=== PATIENT | male | born 1985 | race Caucasian/White ===

== ENCOUNTER 2016-06-20 13:30 | Emergency (ER) | payer OTHER ==
[~2016-06-20] VITALS: Ht 177.8 cm; Wt 115.0 kg
[~2016-06-20 13:30] MED LIST: Z.0.NO CURRENT MEDS
[2016-06-20 13:32] VITALS: BP 117/70; PULSE 96; RESP 14; TEMP 98.7; O2SAT 96
[2016-06-20] MEDS ORDERED: GABA300C5 PO (13:37)
[2016-06-20] MEDS ORDERED: BENA25TA3 PO (13:37)
[2016-06-20] MEDS ORDERED: CELE20TA PO (13:37)
--- NOTE | 2016-06-20 13:58 | PD ---
HPI Chief Complaint: GI Complaint Time Seen by Provider: 13:54 Travel History International Travel<30 days: No Contact w/Intl Traveler<30days: No Traveled to known affect area: No History of Present Illness HPI 31-year-old man presents emergent department after 4 episodes of loose stools this morning. His a history of GI problems. Takes Bentyl daily. Sp[facility] worried because it started taking 60 g of protein at a time following a work out in her worried that because of the tryptophan in the protein powder in the SSRI that is on the could be developing early serotonin syndrome. Is eating and drinking okay. A little bit queasy but no vomiting. No blood in the stools. No significant cramping. No other complaints. History Past Medical History Narrative Medical GI problems Social History Alcohol Use: Yes (OCCASIONALLY) Tobacco Use: No (1 PPD; PT D/C IN NOV) Allergies-Medications (Allergen,Severity, Reaction): Coded Allergies: Hydroxyzine (Verified Allergy, Severe, 06/20/16) PRIAPISM Zoloft (Verified Allergy, Severe, 06/20/16) PRIAPISM Reported Meds & Prescriptions Reported Meds & Active Scripts Active Reported Dicyclomine (Dicyclomine HCl) 10 Mg Cap 10 Mg PO BID Benadryl Allergy (Diphenhydramine HCl) 25 Mg Tab 50 Mg PO HS PRN Gabapentin 300 Mg Cap 300 Mg PO BID Celexa (Citalopram Hydrobromide) 20 Mg Tab 20 Mg PO DAILY Review of Systems Except as stated in HPI: all other systems reviewed are Neg Physical Exam Narrative GENERAL: 31-year-old man, no acute distress. SKIN: Warm and dry. HEAD: Atraumatic. Normocephalic. CARDIOVASCULAR: Regular rate and rhythm. No murmur appreciated. RESPIRATORY: No accessory muscle use. Clear to auscultation. Breath sounds equal bilaterally. GASTROINTESTINAL: Benign abdominal exam. MUSCULOSKELETAL: No obvious deformities. No clubbing. No cyanosis. No edema. NEUROLOGICAL: Awake and alert. No obvious cranial nerve deficits. Motor grossly within normal limits. Normal speech. Data Data Last Documented VS Vital Signs Date Time Temp Pulse Resp B/P Pulse Ox O2 Delivery O2 Flow Rate FiO2 06/20/16 13:32 98.7 96 14 117/70 96 Room Air Orders Complete Blood Count With Diff (06/20/16 13:54) Comprehensive Metabolic Panel (06/20/16 13:54) Labs Laboratory Tests Test 06/20/16 14:00 White Blood Count 10.1 TH/MM3 Red Blood Count 5.26 MIL/MM3 Hemoglobin 14.8 GM/DL Hematocrit 43.5 % Mean Corpuscular Volume 82.7 FL Mean Corpuscular Hemoglobin 28.1 PG Mean Corpuscular Hemoglobin 34.0 % Concent Red Cell Distribution Width 13.7 % Platelet Count 254 TH/MM3 Mean Platelet Volume 7.9 FL Neutrophils (%) (Auto) 69.0 % Lymphocytes (%) (Auto) 24.2 % Monocytes (%) (Auto) 5.6 % Eosinophils (%) (Auto) 0.8 % Basophils (%) (Auto) 0.4 % Neutrophils # (Auto) 7.0 TH/MM3 Lymphocytes # (Auto) 2.4 TH/MM3 Monocytes # (Auto) 0.6 TH/MM3 Eosinophils # (Auto) 0.1 TH/MM3 Basophils # (Auto) 0.0 TH/MM3 CBC Comment DIFF FINAL Differential Comment Sodium Level 139 MEQ/L Potassium Level 3.9 MEQ/L Chloride Level 105 MEQ/L Carbon Dioxide Level 26.9 MEQ/L Anion Gap 7 MEQ/L Blood Urea Nitrogen 18 MG/DL Creatinine 0.97 MG/DL Estimat Glomerular Filtration 89 ML/MIN Rate Random Glucose 85 MG/DL Calcium Level 9.3 MG/DL Total Bilirubin 0.2 MG/DL Aspartate Amino Transf 23 U/L (AST/SGOT) Alanine Aminotransferase 40 U/L (ALT/SGPT) Alkaline Phosphatase 79 U/L Total Protein 7.8 GM/DL Albumin 4.0 GM/DL [facility] Medical Decision Making Medical Screen Exam Complete: Yes Emergency Medical Condition: Yes Interpretation(s) CBC unremarkable CMP unremarkable Differential Diagnosis GI upset, gastroenteritis, enteritis, other Narrative Course Medical decision making 30 year-old woman presents emergency room complaining of loose stools 4 episodes. Looks fine. Suspect is from the bulk of protein that he Hycodan as an osmotic laxative. I don't see any evidence of serotonin syndrome. In any case he looks well, we'll check basic labs, he is able to by mouth hydrate fine. Recommend outpatient follow-up. Diagnosis Primary Impression: Diarrhea Qualified Code: R19.7 - Diarrhea, unspecified type Patient Instructions: General Instructions Additional Instructions: Use Imodium if needed for diarrhea. Drink plenty of fluids stay well-hydrated. Albeit primary doctor in the next 2-4 days. Med/Other Pt SpecificInfo: No Change to Meds Disposition: 01 DISCHARGE HOME Condition: Hao Hdz MD Jun 20, 2016 13:58
[2016-06-20] MEDS ORDERED: DICY10CA12 PO (14:09)
[2016-06-20 14:13] LABS: BASOPHIL % 0.4 % (0.0-2.0); EOSINOPHIL # 0.1 TH/MM3 (0-0.4); EOSINOPHIL % 0.8 % (0.0-4.0); HEMATOCRIT 43.5 % (39.0-51.0); HEMO FLAGS DIFF FINAL; LYMPH % 24.2 % (9.0-44.0); LYMPHOCYTE # 2.4 TH/MM3 (1.0-4.8); MEAN CELL VOLUME 82.7 FL (80.0-100.0); MEAN CORPUSCULAR HEMOGLOBIN 28.1 PG (27.0-34.0); MONO % 5.6 % (0.0-8.0); PLATELET COUNT 254 TH/MM3 (150-450); RED BLOOD COUNT 5.26 MIL/MM3 (4.50-5.90); RED CELL DISTRIBUTION WIDTH 13.7 % (11.6-17.2); WHITE BLOOD COUNT 10.1 TH/MM3 (4.0-11.0)
[2016-06-20 14:27] LABS: ALT (GPT) 40 U/L (12-78); ANION GAP 7 MEQ/L (5-15); AST (GOT) 23 U/L (15-37); BICARBONATE 26.9 MEQ/L (21.0-32.0); BLOOD UREA NITROGEN 18 MG/DL (7-18); CHLORIDE 105 MEQ/L (98-107); GLOMERULAR FILTRATION RATE 89 ML/MIN (>89); POTASSIUM 3.9 MEQ/L (3.5-5.1); SODIUM (NA) 139 MEQ/L (136-145)
[2016-06-20 14:29] LABS: ALKALINE PHOSPHATASE 79 U/L (45-117); TOTAL BILIRUBIN ADULT 0.2 MG/DL (0.2-1.0)
== END 2016-06-20 14:43 | disposition home or self-care (01) ==
LOC: NETRI 13:30
DX: R19.7 Diarrhea, unspecified (principal)
CPT/HCPCS: 80053; 85025; 99284